=== PATIENT | male | born 1995 | race Caucasian/White ===

== ENCOUNTER 2016-07-12 11:20 | Emergency (ER) | payer MEDICAID ==
[2016-07-12] MEDS ORDERED: Sodium Chloride 0.9% 10 ML Syringe FLUSH PRN (12:03)
[2016-07-12] MEDS ORDERED: Ondansetron 4 MG/2 ML SDV IVPUSH ONE (12:04)
[2016-07-12] MEDS ORDERED: Sodium Chloride 0.9% 1,000 ML IV ONE (12:04)
[2016-07-12] MEDS ORDERED: Morphine 4 MG/ML Syringe IVPUSH ONE (12:05)
[2016-07-12] MEDS ORDERED: Iopamidol 612 MG/ML 100 ML Bottle IV PRN (12:07)
[2016-07-12] MEDS ORDERED: Sodium Chloride 0.9% 80 ML IV SCH (12:15)
--- NOTE | 2016-07-12 12:32 | EDM.PDOC ---
ED HPI GENERAL MEDICAL PROBLEM - General Chief Complaint: Abdominal Pain Stated Complaint: ABDOMINAL PAIN Time Seen by Provider: 07/12/16 12:10 Source of Information: Reports: Patient History Limitations: Reports: No Limitations - History of Present Illness INITIAL COMMENTS - FREE TEXT/NARRATIVE: Alistair is an otherwise healthy 20 year old male who presents to the ED with c/ o abdominal pain and vomiting since Tuesday. Patient reports there may have been blood in his stool yesterday, but stool was brown today. Patient denies any known fever. Patient reports that pain is mostly in his RLQ and has been getting progressively worse since yesterday. Onset: Gradual Duration: Day(s): (2) Associated Symptoms: Reports: Nausea/Vomiting Abdomen Pain Score (Numeric/FACES): 9 - Related Data Allergies Allergy/AdvReac Type Severity Reaction Status Date / Time Penicillins Allergy Severe Swelling Verified 07/12/16 11:43 Home Meds: Home Meds NK [No Known Home Meds] 07/12/16 [History] Past Medical History Cardiovascular History: Reports: Heart Murmur Genitourinary History: Reports: UTI, Recurrent Musculoskeletal History: Reports: Fracture Psychiatric History: Reports: ADHD - Past Surgical History Musculoskeletal Surgical History: Reports: ORIF Social & Family History - Tobacco Use Smoking Status *Q: Current Every Day Smoker Years of Tobacco use: 5 Packs/Tins Daily: 1.5 - Caffeine Use Caffeine Use: Reports: Coffee, Energy Drinks, Soda - Recreational Drug Use Recreational Drug Use: No ED ROS GENERAL - Review of Systems Review Of Systems: See Below Constitutional: Reports: Decreased Appetite HEENT: Reports: No Symptoms Respiratory: Reports: No Symptoms Cardiovascular: Reports: No Symptoms Endocrine: Reports: No Symptoms GI/Abdominal: Reports: Abdominal Pain, Bloody Stool, Nausea, Vomiting : Reports: No Symptoms Musculoskeletal: Reports: No Symptoms Skin: Reports: No Symptoms Neurological: Reports: No Symptoms Psychiatric: Reports: No Symptoms Hematologic/Lymphatic: Reports: No Symptoms Immunologic: Reports: No Symptoms ED EXAM, GI/ABD - Physical Exam Exam: See Below Exam Limited By: No Limitations General Appearance: Alert, WD/WN, No Apparent Distress Ears: Normal External Exam Throat/Mouth: Normal Inspection, Normal Oropharynx Head: Atraumatic Respiratory/Chest: No Respiratory Distress, Lungs Clear, Normal Breath Sounds Cardiovascular: Normal Peripheral Pulses, Regular Rate, Rhythm, No Murmur GI/Abdominal: Normal Bowel Sounds, Soft, No Organomegaly, Tenderness, McBurney' s Sign, Rovsing's Sign Rectal (Males) Exam: Deferred (Denies any problems) Extremities: Normal Inspection Neurological: Alert, Oriented Psychiatric: Normal Affect, Normal Mood Skin Exam: Warm, Dry, Intact Lymphatic: No Adenopathy Course - Vital Signs Text/Narrative:: Alistair is an otherwise healthy 20 year old male who presents to the ED today with c/o right lower quadrant abdominal pain since Tuesday with nausea and vomiting. Patient did endorse some BRB in stool yesterday, none today. Patient on exam is well hydrated, he is non-toxic appearing. Vital signs are reassuring and patient is afebrile. Tenderness elicited at McBurney's point with positive Rovsing sign, concerning for an acute appendicitis. PIV established, patient given IV Zofran, Fluids, and morphine with good improvement in his symptoms. Blood work today reveals a normal white count, mildly elevated neutrophils. CMP and lipase within normal limits. CT scan obtained, CT report shows an acute colitis involving the ascending and transverse colon. Likely non-infectious etiology given normal white count. Normal appendix, focal fatty infiltration of liver. Few clustered prominent mesenteric lymph nodes. Remaining Scan is unremarkable. I discussed findings with patient, given his normal white count and lack of fever, this is likely non -infectious. There is no mention of diverticulitis on scan. Typically this is a self limited process. I will send patient home with Zofran for N/V. He can take Tylenol and Ibuprofen for pain as needed. I did instruct patient to stay on clear liquids for the next 24 hours to rest his colon and advance diet as tolerated after that. Patient should follow up with PCP, return to the ED with any worsening symptoms/complications. Patient is agreeable, work note provided on request, patient discharged in stable condition with friend driving. Last Recorded V/S: Last Vital Signs Temp 36.7 C 07/12/16 11:49 Pulse 75 07/12/16 12:32 Resp 14 07/12/16 12:32 BP 135/74 07/12/16 12:32 Pulse Ox 97 07/12/16 12:32 - Orders/Labs/Meds Orders: Active Orders 24 hr Category Date Time Status Peripheral IV Care [RC] . DIRECTED Care 07/12/16 12:03 Active Abdomen Pelvis w Cont [CT] Stat Exams 07/12/16 12:04 Taken Peripheral IV Insertion Adult [OM.PC] Routine Oth 07/12/16 12:03 Ordered Labs: Laboratory Tests 07/12/16 07/12/16 Range/Units 12:07 12:07 WBC 9.2 (4.5-11.0) K/uL RBC 5.16 (4.30-5.90) M/uL Hgb 15.6 H (12.0-15.0) g/dL Hct 46.0 (40.0-54.0) % MCV 89 (80-98) fL MCH 30 (27-31) pg MCHC 34 (32-36) % Plt Count 250 (150-400) K/uL Neut % (Auto) 72 H (36-66) % Lymph % (Auto) 18 L (24-44) % Alexander % (Auto) 7 H (2-6) % Eos % (Auto) 2 (2-4) % Baso % (Auto) 1 (0-1) % Sodium 142 (140-148) mmol/L Potassium 4.0 (3.6-5.2) mmol/L Chloride 105 (100-108) mmol/L Carbon Dioxide 30 (21-32) mmol/L Anion Gap 7.4 (5.0-14.0) mmol/L BUN 16 (7-18) mg/dL Creatinine 0.8 (0.8-1.3) mg/dL Est Cr Clr Drug Dosing 169.82 mL/min Estimated GFR (MDRD) > 60 (>60) Glucose 94 (74-106) mg/dL Calcium 8.7 (8.5-10.1) mg/dL Total Bilirubin 0.3 (0.2-1.0) mg/dL AST 14 L (15-37) U/L ALT 23 (12-78) U/L Alkaline Phosphatase 107 (46-116) U/L Total Protein 7.4 (6.4-8.2) g/dL Albumin 3.8 (3.4-5.0) g/dL Globulin 3.6 H (2.3-3.5) g/dL Albumin/Globulin Ratio 1.1 L (1.2-2.2) Lipase 85 (73-393) U/L Meds: Medications Discontinued Medications Generic Name Dose Route Start Last Admin Trade Name Quoc PRN Reason Stop Dose Admin Sodium Chloride 1,000 mls @ 999 mls/hr 07/12/16 12:04 07/12/16 12:21 Normal Saline IV 07/12/16 13:04 999 mls/hr .BOLUS ONE Administration Sodium Chloride 80 mls @ 3.5 mls/sec 07/12/16 12:15 07/12/16 12:16 Normal Saline IV 3.5 mls/sec ASDIRECTED ROCKY Administration Iopamidol 100 ml 07/12/16 12:07 07/12/16 12:16 Isovue-300 (61%) IV 07/13/16 12:08 100 ml . DIRECTED PRN Administration RADIOLOGY EXAM Morphine Sulfate 4 mg 07/12/16 12:05 07/12/16 12:27 Morphine IVPUSH 07/12/16 12:06 4 mg ONETIME ONE Administration Ondansetron HCl 4 mg 07/12/16 12:04 07/12/16 12:24 Zofran IVPUSH 07/12/16 12:05 4 mg ONETIME ONE Administration Sodium Chloride 10 ml 07/12/16 12:03 07/12/16 12:30 Saline Flush FLUSH 10 ml ASDIRECTED PRN Administration Keep Vein Open Departure - Departure Time of Disposition: 14:00 Disposition: Home, Self-Care 01 Condition: good Clinical Impression: Colitis Clinical Impression: (Ruled Out): Small bowel obstruction - Discharge Information Instructions: Abdominal Pain, Adult, [id number], Nausea and Vomiting, Adult, [id number] Referrals: PCP,None [Primary Care Provider] - Forms: ED Department Discharge Additional Instructions: Alistair, you have colitis, which is an inflammation in your colon. This is likely viral in nature as you have no fever and your blood work is reassuring. I am going to send you home with Zofran for nausea/vomiting. I would like you to have clear liquids for the next 24 hours, drink things like water and Gatorade. Do not drink any caffeine. If you are able to tolerate clear fluids , you can slowly introduce soft, non-fatty foods to your diet after 24 hours. I would like you to also start taking Culturelle which is a probiotic, you can purchase this over the counter. I would like you to take this twice daily until you are feeling better. Please follow up with your primary doctor in one week. If you have any complications such as fever, worsening pain despite Ibuprofen/Tylenol, or uncontrolled nausea/vomiting with the Zofran, please return to the Emergency Department. I have given you a work note for through . I hope you feel better soon. - My Orders Last 24 Hours: My Active Orders 07/12/16 12:03 Peripheral IV Care [RC] . DIRECTED Peripheral IV Insertion Adult [OM.PC] Routine 07/12/16 12:04 Abdomen Pelvis w Cont [CT] Stat - Assessment/Plan Last 24 Hours: My Active Orders 07/12/16 12:03 Peripheral IV Care [RC] . DIRECTED Peripheral IV Insertion Adult [OM.PC] Routine 07/12/16 12:04 Abdomen Pelvis w Cont [CT] Stat
[2016-07-12 12:34] VITALS: BP 135/74
== END 2016-07-12 14:11 | disposition home or self-care (01) ==
LOC: JP.ED 11:20
DX: K52.9 Noninfective gastroenteritis and colitis, unspecified (principal); F17.210 Nicotine dependence, cigarettes, uncomplicated; Z88.0 Allergy status to penicillin; Z98.890 Other specified postprocedural states
CPT/HCPCS: 36415; 74177; 80053; 83690; 85025; 96374; 96375; 99284; J2270; J2405; J7030; J7040; J7050; Q9967

== ENCOUNTER 2016-07-28 12:13 | Emergency (ER) | payer MEDICAID ==
[2016-07-28 12:30] VITALS: BP 156/90
[2016-07-28] MEDS ORDERED: LORazepam 0.5 MG Tab PO ONE (12:41)
[2016-07-28] MEDS ORDERED: Ketorolac 60 MG/2 ML SDV IM ONE (12:41)
--- NOTE | 2016-07-28 12:44 | EDM.PDOC ---
ED HPI GENERAL MEDICAL PROBLEM - General Chief Complaint: Chest Pain Stated Complaint: CHEST PAIN Time Seen by Provider: 07/28/16 12:35 Source of Information: Reports: Patient, RN Notes Reviewed History Limitations: Reports: No Limitations - History of Present Illness INITIAL COMMENTS - FREE TEXT/NARRATIVE: 20-year-old gentleman presents emergency department day complaint of chest pain , he states he's had this particular pain in the past he has had is extensive workup including CT scan and echocardiogram without any etiology. He states for this particular event chest pain came on a couple days ago while he was working in the tractor he has had a cough denies any trauma he describes a presyncopal events with the chest pain 2 days prior. He states he feels short of breath because the pain is so intense it's hard for him to breathe Left Chest Pain Score (Numeric/FACES): 6 - Related Data Allergies Allergy/AdvReac Type Severity Reaction Status Date / Time Penicillins Allergy Severe Swelling Verified 07/12/16 11:43 Home Meds: Home Meds NK [No Known Home Meds] 07/12/16 [History] Past Medical History Cardiovascular History: Reports: Heart Murmur Genitourinary History: Reports: UTI, Recurrent Musculoskeletal History: Reports: Fracture Psychiatric History: Reports: ADHD - Past Surgical History Musculoskeletal Surgical History: Reports: ORIF Social & Family History - Tobacco Use Smoking Status *Q: Light Tobacco Smoker Years of Tobacco use: 5 Packs/Tins Daily: 0.5 - Caffeine Use Caffeine Use: Reports: Coffee - Recreational Drug Use Recreational Drug Use: No ED ROS GENERAL - Review of Systems Review Of Systems: See Below Constitutional: Reports: No Symptoms HEENT: Reports: No Symptoms Respiratory: Reports: Shortness of Breath Cardiovascular: Reports: Chest Pain, Dyspnea on Exertion, Syncope GI/Abdominal: Reports: No Symptoms : Reports: No Symptoms Musculoskeletal: Reports: No Symptoms Skin: Reports: No Symptoms Neurological: Reports: Syncope ED EXAM, GENERAL - Physical Exam Exam: See Below Exam Limited By: No Limitations General Appearance: Alert, Mild Distress Head: Atraumatic, Normocephalic Neck: Normal Inspection, Supple, Non-Tender, Full Range of Motion Respiratory/Chest: No Respiratory Distress, Lungs Clear, Normal Breath Sounds, No Accessory Muscle Use, Other (Point tenderness over the 3 region left side anterior aspect) Cardiovascular: Regular Rate, Rhythm, No Murmur GI/Abdominal: Soft, Non-Tender Course - Vital Signs Last Recorded V/S: Last Vital Signs Temp 97.2 F 07/28/16 12:28 Pulse 77 07/28/16 12:28 Resp 14 07/28/16 12:28 BP 156/90 H 07/28/16 12:28 Pulse Ox 98 07/28/16 12:28 - Orders/Labs/Meds Orders: Active Orders 24 hr Category Date Time Status EKG Documentation Completion [RC] ASDIRECTED Care 07/28/16 12:42 Active EKG 12 Lead [EK] Stat Ther 07/28/16 12:41 Ordered Meds: Medications Discontinued Medications Generic Name Dose Route Start Last Admin Trade Name Quoc PRN Reason Stop Dose Admin Ketorolac Tromethamine 60 mg 07/28/16 12:41 07/28/16 12:45 Toradol IM 07/28/16 12:42 60 mg ONETIME ONE Administration Lorazepam 0.5 mg 07/28/16 12:41 07/28/16 12:46 Ativan PO 07/28/16 12:42 0.5 mg ONETIME ONE Administration Departure - Departure Time of Disposition: 13:43 Disposition: Home, Self-Care 01 Condition: Good Clinical Impression: Chest wall pain - Discharge Information Forms: ED Department Discharge Additional Instructions: Use Toradol as needed for pain control, Please followup with your primary care provider in next few 3-5 days if not better, please call return to the emergency department with worsening of symptoms. - My Orders Last 24 Hours: My Active Orders 07/28/16 12:41 EKG 12 Lead [EK] Stat 07/28/16 12:42 EKG Documentation Completion [RC] ASDIRECTED - Assessment/Plan Last 24 Hours: My Active Orders 07/28/16 12:41 EKG 12 Lead [EK] Stat 07/28/16 12:42 EKG Documentation Completion [RC] ASDIRECTED Plan: Assessment Acuity = acute on chronic Site and laterality = chest wall pain Etiology = suspicious for repetitive motion injury Manifestations = none Location of injury = home Lab values = EKG demonstrates normal sinus rhythm, chest x-ray no acute process Plan He had good relief from the Toradol injection plan is discharge home with Toradol he can use as needed mainly at night follow-up with primary care 3-5 days if not better Patient was in agreement with the plan all questions were answered, they were instructed to return to the emergency department or call for worsening symptoms. This note was dictated using [employer] voice recognition software please call with any questions.
--- NOTE | 2016-07-28 13:23 | CR ---
Chest 2V INDICATION: cp left upper t3 FINDINGS: Negative chest.
== END 2016-07-28 13:51 | disposition home or self-care (01) ==
LOC: JP.ED 12:13
DX: R07.89 Other chest pain (principal); F17.210 Nicotine dependence, cigarettes, uncomplicated; F90.9 Attention-deficit hyperactivity disorder, unspecified type; Z88.0 Allergy status to penicillin
CPT/HCPCS: 71020; 93005; 96372; 99285; A9270; J1885

== ENCOUNTER 2016-08-10 18:27 | Emergency (ER) | payer MEDICAID ==
[2016-08-10 19:03] VITALS: BP 149/75
[2016-08-10] MEDS ORDERED: Bacitracin Oint 1 GM U/D Packet TOP ONE (19:17)
[2016-08-10] MEDS ORDERED: Diphtheria,Pertussis(Acell),Tetanus Vaccine 0.5 ML SDV IM ONE (19:56)
--- NOTE | 2016-08-10 19:57 | EDM.PDOC ---
ED HPI GENERAL MEDICAL PROBLEM - General Chief Complaint: Skin Complaint Stated Complaint: CUT RT FINGERS/LEFT PINKY INJURY Time Seen by Provider: 08/10/16 19:20 Source of Information: Reports: Patient History Limitations: Reports: No Limitations - History of Present Illness INITIAL COMMENTS - FREE TEXT/NARRATIVE: 20-year-old male sustained a few lacerations to his right hand when he tried to grab onto a cast iron pipe. He has a few superficial lacerations to the fingers but one transverse deeper laceration to the DIP joint of the middle finger palmar surface. Onset: Today Right Hand Pain Score (Numeric/FACES): 0 - Related Data Allergies Allergy/AdvReac Type Severity Reaction Status Date / Time Penicillins Allergy Severe Swelling Verified 08/10/16 19:03 Home Meds: Home Meds NK [No Known Home Meds] 07/12/16 [History] Past Medical History Cardiovascular History: Reports: Heart Murmur Genitourinary History: Reports: UTI, Recurrent Musculoskeletal History: Reports: Fracture Psychiatric History: Reports: ADHD - Past Surgical History Musculoskeletal Surgical History: Reports: ORIF Social & Family History - Tobacco Use Smoking Status *Q: Light Tobacco Smoker Years of Tobacco use: 5 Packs/Tins Daily: 0.5 Used Tobacco, but Quit: No Second Hand Smoke Exposure: Yes - Caffeine Use Caffeine Use: Reports: Coffee - Recreational Drug Use Recreational Drug Use: No ED ROS GENERAL - Review of Systems Review Of Systems: ROS reveals no pertinent complaints other than HPI. ED EXAM, SKIN/RASH Exam: See Below Exam Limited By: No Limitations General Appearance: Alert, No Apparent Distress Respiratory/Chest: No Respiratory Distress Extremities: Other (Exam is otherwise limited to his right hand. Patient has a 1.5 cm transverse laceration across the middle finger PIP joint. He has some numbness of the distal finger but the tendon function is intact. He also has 2 or 3 small superficial abrasions and avulsions of the index and small finger.) Neurological: Alert, Oriented Psychiatric: Normal Affect, Normal Mood Course - Vital Signs Last Recorded V/S: Last Vital Signs Temp 98.6 F 08/10/16 19:02 Pulse 98 08/10/16 19:02 Resp 16 08/10/16 19:02 BP 149/75 H 08/10/16 19:02 Pulse Ox 96 08/10/16 19:02 - Orders/Labs/Meds Orders: Active Orders 24 hr Category Date Time Status Vaccines to be Administered [RC] PER UNIT ROUTINE Care 08/10/16 19:56 Active Meds: Medications Discontinued Medications Generic Name Dose Route Start Last Admin Trade Name Quoc PRN Reason Stop Dose Admin Bacitracin 1 dose 08/10/16 19:17 08/10/16 19:23 Bacitracin Oint 1 Gm TOP 08/10/16 19:18 1 dose ONETIME ONE Administration Diphtheria/Tetanus/Acell Pertussis 0.5 ml 08/10/16 19:56 08/10/16 20:09 Adacel IM 08/10/16 19:57 0.5 ml .ONCE ONE Administration Lidocaine HCl 5 ml 08/10/16 19:17 08/10/16 19:23 Xylocaine-Mpf 1% INJECT 08/10/16 19:18 5 ml ONETIME ONE Administration - Re-Assessments/Exams Free Text/Narrative Re-Assessment/Exam: 08/10/16 20:03 Wounds were cleaned thoroughly, laceration was infiltrated with 1% lidocaine and 3 4-0 Ethilon sutures were used to close the laceration. He was given a TDap Vaccine booster and wounds were covered with bacitracin. Stitches can be removed in 7 days. Departure - Departure Time of Disposition: 20:22 Disposition: Home, Self-Care 01 Condition: Good Clinical Impression: Finger laceration Qualifiers: Encounter type: initial encounter Finger: middle finger Damage to nail status: without damage Foreign body presence: without foreign body Laterality: right Qualified Code(s): S61.212A - Laceration without foreign body of right middle finger without damage to nail, initial encounter - Discharge Information Instructions: Laceration Care, Adult Referrals: Carlos Olea MD [Primary Care Provider] - Forms: ED Department Discharge Care Plan Goals: Keep wounds covered and clean while healing. Increase activity as tolerated and sutures can be removed in 7 days. Recheck sooner if concerns of infection or not healing satisfactorily. - My Orders Last 24 Hours: My Active Orders 08/10/16 19:56 Vaccines to be Administered [RC] PER UNIT ROUTINE - Assessment/Plan Last 24 Hours: My Active Orders 08/10/16 19:56 Vaccines to be Administered [RC] PER UNIT ROUTINE
== END 2016-08-10 20:22 | disposition home or self-care (01) ==
LOC: JP.ED 18:27
DX: S61.212A Laceration without foreign body of right middle finger without damage to nail, initial encounter (principal); F90.9 Attention-deficit hyperactivity disorder, unspecified type; F17.210 Nicotine dependence, cigarettes, uncomplicated; Z88.0 Allergy status to penicillin; Z23 Encounter for immunization; Z87.440 Personal history of urinary (tract) infections; Y29.XXXA Contact with blunt object, undetermined intent, initial encounter
CPT/HCPCS: 12001; 90471; 90715; 99283-25